=== PATIENT | female | born 1970 | race American Indian/Alaskan Native ===

== ENCOUNTER 2021-05-09 09:08 | Outpatient (CLI) | payer OTHER ==
--- NOTE | 2021-05-09 11:05 | XRay Report ---
RIGHT FOOT 2 VIEW(S) INDICATION / CLINICAL INFORMATION: RIGHT FOOT PAIN COMPARISON: None available. FINDINGS: BONES / JOINT(S): No acute fracture or subluxation. No significant arthritis. SOFT TISSUES: No significant abnormality. ADDITIONAL FINDINGS: None. Signer Name: Miky Cabezas DO Signed: 05/09/2021 11:01 AM Workstation Name: [id number]
--- NOTE | 2021-05-09 11:14 | XRay Report ---
LUMBAR SPINE 3 VIEWS INDICATION: Back pain. COMPARISON: No relevant prior imaging study available. FINDINGS: VERTEBRAE: No acute fracture. Normal alignment. DISC SPACES: There are multilevel mild discogenic degenerative changes. FACET JOINTS: No significant abnormality. SOFT TISSUES: No significant abnormality. ADDITIONAL FINDINGS: No additional significant findings. IMPRESSION: Mild lumbar spondylosis. Signer Name: Jose Cordova MD Signed: 05/09/2021 11:03 AM Workstation Name: [id number]
--- NOTE | 2021-05-09 12:30 | XRay Report ---
BILATERAL KNEES STANDING AP VIEW INDICATION: BILATERAL KNEE PAIN. COMPARISON: None. IMPRESSION: Normal bone mineralization. No evidence for fracture, bone lesion or joint pathology. N ormal soft tissues. Normal bilateral knees. Signer Name: Lonnie Soto Jr, MD Signed: 05/09/2021 12:26 PM Workstation Name: [id number]
== END 2021-05-09 09:09 | disposition home or self-care (01) ==
LOC: XRAY 09:08
PROVIDERS: ATTEND Internal Medicine
DX: M47.816 Spondylosis without myelopathy or radiculopathy, lumbar region (principal); M25.562 Pain in left knee; M25.561 Pain in right knee; M79.671 Pain in right foot
CPT/HCPCS: 72100; 73565